=== PATIENT | male | born 1990 | race African-American/Black ===

== ENCOUNTER 2017-11-16 11:58 | Emergency (ER) | payer OTHER ==
[~2017-11-16] VITALS: Ht 190.5 cm; Wt 187.0 kg
[2017-11-16 12:13] VITALS: BP 174/103
[2017-11-16] MEDS ORDERED: BACITRACIN ZINC OINT UDPKT TOP ONE (12:30)
== END 2017-11-16 13:34 | disposition home or self-care (01) ==
LOC: ER 11:58
DX: S50.811A Abrasion of right forearm, initial encounter (principal); I10 Essential (primary) hypertension; F17.200 Nicotine dependence, unspecified, uncomplicated; W22.03XA Walked into furniture, initial encounter; Y93.01 Activity, walking, marching and hiking; Y92.89 Other specified places as the place of occurrence of the external cause; Y99.8 Other external cause status
CPT/HCPCS: 99282

== ENCOUNTER 2018-03-29 00:14 | Emergency (ER) | payer OTHER ==
[~2018-03-29] VITALS: Ht 190.5 cm; Wt 200.0 kg
[2018-03-29] MEDS ORDERED: BACITRACIN ZINC 15GM TUBE TOP ONE (02:15)
[2018-03-29 04:28] VITALS: BP 138/68
== END 2018-03-29 04:29 | disposition home or self-care (01) ==
LOC: ER 00:14
DX: S80.212A Abrasion, left knee, initial encounter (principal); S80.211A Abrasion, right knee, initial encounter; S80.02XA Contusion of left knee, initial encounter; S80.01XA Contusion of right knee, initial encounter; I10 Essential (primary) hypertension; J45.909 Unspecified asthma, uncomplicated; F17.200 Nicotine dependence, unspecified, uncomplicated; G47.30 Sleep apnea, unspecified; F12.10 Cannabis abuse, uncomplicated; E66.01 Morbid (severe) obesity due to excess calories; Z68.43 Body mass index [BMI] 50.0-59.9, adult; V03.10XA Pedestrian on foot injured in collision with car, pick-up truck or van in traffic accident, initial encounter; Y93.89 Activity, other specified; Y92.488 Other paved roadways as the place of occurrence of the external cause
CPT/HCPCS: 73501; 73560; 73620; 99284

== ENCOUNTER 2018-04-10 09:20 | Inpatient (IN) | payer OTHER ==
[~2018-04-10] VITALS: Ht 188 cm; Wt 192.8 kg
[2018-04-10] MEDS ORDERED: ALBUTEROL (0.083%) 2.5MG/3ML NEB HHN STA (10:46)
[2018-04-10] MEDS ORDERED: IPRATROPIUM BROMIDE (0.02%) 0.5MG/2.5ML NEB HHN STA (10:46)
[2018-04-10] MEDS ORDERED: METHYLPREDNISOLONE SOD SUCC 125 MG/2 ML VIAL IV STA (10:46)
[2018-04-10 11:24] LABS: BG BASE EXCESS 0.5 mmol/L (-2.0-2.0); BG DEOXYHEMOGLOBIN 4.7 % (0.0-5.0); BG FRACTION INSPIRED OXYGEN 36; BG HCO3 ACT 25.8 mmol/L (22.0-26.0); BG METHEMOGLOBIN 0.3 % (0.0-1.5); BG OXYGEN SATURATION 95.2 % (92.0-98.5); BG PCO2 44.1 mmHg (35.0-45.0); BG PH 7.385 (7.350-7.450); BG PO2 77.2 mmHg (75.0-100.0); BG SAMPLE SITE LEFT RADIAL; BG TOTAL HEMOGLOBIN 13.8 g/dL (12.0-18.0); BG VENT MODE NASAL CANNULA
[2018-04-10 11:57] LABS: HEMATOCRIT. 38.8 % (42.0-52.0); HEMOGLOBIN. 12.8 g/dL (14.0-18.0); MEAN CORPUSCULAR HEMOGLOBIN 28.1 pg (28.0-32.0); MEAN CORPUSCULAR VOLUME 84.7 fL (80.0-94.0); MEAN PLATELET VOLUME 10.1 fl (7.4-10.4); PLATELET 115 x1000/uL (130-400); RED BLOOD CELL COUNT 4.58 mill/uL (4.7-6.1)
[2018-04-10 12:00] LABS: CHLORIDE 95 mEq/L (98-107)
[2018-04-10 12:02] LABS: INR 1.3; PROTHROMBIN TIME 12.7 sec (9.1-11.1)
[2018-04-10] MEDS ORDERED: PIPERACILLIN/TAZ 3.375G PREMIX 50 ML IV ONE (12:15)
[2018-04-10] MEDS ORDERED: VANCOMYCIN 1 G PREMIX 200 ML IV ONE (12:15)
[2018-04-10] MEDS ORDERED: SODIUM CHLORIDE 0.9% 1,000 ML IV ONE ×3 (12:15→13:45)
[2018-04-10 12:58] LABS: PLATELET ESTIMATE SLIGHTLY DECREASED
[2018-04-10] MEDS ORDERED: ENOXAPARIN 150MG/ML SYR SUBCUT ONE (14:45)
[2018-04-10] MEDS ORDERED: ACETAMINOPHEN 650MG SUPP PR PRN (17:00)
[2018-04-10] MEDS ORDERED: MAGNESIUM/ALUMINUM HYDROXIDE/SIMETHICONE 30ML UDC PO PRN (17:00)
[2018-04-10] MEDS ORDERED: ACETAMINOPHEN 650MG/20.3ML UDC GT PRN (17:00)
[2018-04-10 18:27] LABS: HEPATITIS B SURFACE ANTIGEN NEGATIVE
[2018-04-10 18:55] LABS: HEPATITIS B CORE AB IGM NEGATIVE
[2018-04-10 18:57] LABS: HEPATITIS A AB IGM NEGATIVE (NEGATIVE)
[2018-04-10 19:56] LABS: CLARITY URINE TURBID (CLEAR); COLOR URINE DARK YELLOW (YELLOW); KETONES URINE NEGATIVE (NEGATIVE); LEUKOCYTE ESTERASE URINE TRACE (NEGATIVE); NITRITE URINE NEGATIVE (NEGATIVE); OCCULT BLOOD URINE 3+ (NEGATIVE); PH URINE 5.5 (4.5-8.0); PROTEIN URINE 2+ (NEGATIVE); SPECIFIC GRAVITY URINE 1.016 (1.005-1.030)
[2018-04-10 20:00] VITALS: BP 135/71
[2018-04-10 20:41] LABS: *AMPHETAMINES SCREEN URINE NEGATIVE (NEGATIVE); *BARBITURATES SCREEN URINE NEGATIVE (NEGATIVE); *BENZODIAZEPINES SCREEN URINE NEGATIVE (NEGATIVE); *COCAINE SCREEN URINE NEGATIVE (NEGATIVE)
[2018-04-10 20:42] LABS: CANNABINOID URINE SCREEN PRESUMTIVE POSITIVE (NEGATIVE); METHADONE URINE SCREEN NEGATIVE (NEGATIVE); OPIATES URINE SCREEN PRESUMTIVE POSITIVE (NEGATIVE); PHENCYCLIDINE URINE SCREEN NEGATIVE (NEGATIVE)
[2018-04-10] MEDS: IPRATROPIUM/ALBUTEROL 0.5-3(2.5)MG/3ML NEB HHN SCH (20:44)
[2018-04-10 22:11] VITALS: BP 116/55
[2018-04-10] MEDS: CLINDAMYCIN 600MG PREMIX 50 ML IV SCH (22:21)
[2018-04-10 22:48] VITALS: BP 133/70
[2018-04-10] MEDS: ONDANSETRON HCL 4MG/2ML INJ IV PRN (23:18)
[2018-04-11] VITALS (53 sets, daily range): BP systolic 90–171; BP diastolic 29–100
[2018-04-11 01:07] LABS: BG BASE EXCESS 1.5 mmol/L (-2.0-2.0); BG BILEVEL POS AIRWAY PRESSURE 15/5; BG CARBOXYHEMOGLOBIN 0.6 % (0.5-1.5); BG DEOXYHEMOGLOBIN 3.5 % (0.0-5.0); BG FRACTION INSPIRED OXYGEN 40; BG HCO3 ACT 29.6 mmol/L (22.0-26.0); BG METHEMOGLOBIN 0.4 % (0.0-1.5); BG OXYGEN SATURATION 96.5 % (92.0-98.5); BG OXYHEMOGLOBIN 95.5 % (94.0-97.0); BG PCO2 62.9 mmHg (35.0-45.0); BG PO2 89.3 mmHg (75.0-100.0); BG SAMPLE SITE RIGHT BRACHIAL; BG TIDAL VOLUME(mL) 18 mL; BG TOTAL HEMOGLOBIN 13.1 g/dL (12.0-18.0); BG VENT MODE MASK - BIPAP
[2018-04-11] MEDS: IPRATROPIUM/ALBUTEROL 0.5-3(2.5)MG/3ML NEB HHN SCH ×4 (01:19→21:21)
[2018-04-11 01:27] LABS: CREATINE KINASE MB FRACTION 7.1 ng/mL (0.5-3.6)
[2018-04-11] MEDS ORDERED: PROPOFOL 10MG/ML 100ML 100 ML IV PRN (01:45)
[2018-04-11] MEDS ORDERED: NOREPINEPHRINE 4 MG in DEXT 5% WATER 246 ML IV PRN (02:30)
[2018-04-11 06:55] LABS: HEMATOCRIT. 35.8 % (42.0-52.0); HEMOGLOBIN. 11.8 g/dL (14.0-18.0); PLATELET 102 x1000/uL (130-400); RED BLOOD CELL COUNT 4.21 mill/uL (4.7-6.1); RED CELL DISTRIBUTION WIDTH 15.4 % (11.6-14.6)
[2018-04-11] MEDS: CLINDAMYCIN 600MG PREMIX 50 ML IV SCH ×3 (07:10→23:20)
[2018-04-11] MEDS: SODIUM CHLORIDE 0.9% 1,000 ML IV SCH ×3 (07:11→20:38)
[2018-04-11] MEDS ORDERED: SUCCINYLCHOLINE CHLORIDE 200MG/10ML VIAL IV ONE (08:42)
[2018-04-11] MEDS ORDERED: ETOMIDATE 2MG/ML 10ML VIAL IV ONE ×2 (08:42→14:08)
[2018-04-11] MEDS: ENOXAPARIN 40MG/0.4ML SYR SUBCUT SCH (09:48)
[2018-04-11 10:18] LABS: BG BASE EXCESS -0.3 mmol/L (-2.0-2.0); BG CARBOXYHEMOGLOBIN 0.3 % (0.5-1.5); BG DEOXYHEMOGLOBIN 3.2 % (0.0-5.0); BG FRACTION INSPIRED OXYGEN 40; BG HCO3 ACT 27.7 mmol/L (22.0-26.0); BG METHEMOGLOBIN 0.2 % (0.0-1.5); BG OXYGEN SATURATION 96.8 % (92.0-98.5); BG OXYHEMOGLOBIN 96.3 % (94.0-97.0); BG PCO2 61.4 mmHg (35.0-45.0); BG PH 7.272 (7.350-7.450); BG SAMPLE SITE RIGHT RADIAL; BG TOTAL HEMOGLOBIN 12.3 g/dL (12.0-18.0); BG VENT MODE MASK - VENTI
[2018-04-11 10:25] LABS: CREATINE KINASE MB FRACTION 5.9 ng/mL (0.5-3.6)
[2018-04-11 10:26] LABS: T4 FREE 0.88 ng/dL (0.76-1.46)
[2018-04-11] MEDS ORDERED: NICOTINE 21MG PATCH TD NR (11:30)
[2018-04-11 11:37] LABS: PLATELET ESTIMATE SLIGHTLY DECREASED
[2018-04-11] MEDS ORDERED: SODIUM CHLORIDE 10% FOR INH 15ML VIAL NEB INH SCH (12:30)
[2018-04-11] MEDS: PIPERACILLIN/TAZ 3.375G PREMIX 50 ML IV SCH ×2 (13:25→20:38)
[2018-04-11] MEDS ORDERED: METRONIDAZOLE 500 MG PREMIX 100 ML IV SCH (14:00)
[2018-04-11] MEDS: PROPOFOL 10MG/ML 100ML 100 ML IV PRN ×4 (14:00→23:30)
[2018-04-11] MEDS ORDERED: NORMAL SALINE 0.9% 10 ML SYR ONE (14:08)
[2018-04-11] MEDS ORDERED: CLINDAMYCIN 600 MG in DEXTROSE 5% WATER 50 ML IV SCH (14:30)
[2018-04-11] MEDS: BUDESONIDE 0.5MG/2ML NEB HHN SCH ×2 (14:54→21:21)
[2018-04-11] MEDS ORDERED: VANCOMYCIN 2,000 MG in DEXT 5% WATER 500 ML IV NR (15:00)
[2018-04-11 15:28] LABS: BG BASE EXCESS -3.6 mmol/L (-2.0-2.0); BG CARBOXYHEMOGLOBIN 0.3 % (0.5-1.5); BG DEOXYHEMOGLOBIN 1.6 % (0.0-5.0); BG FRACTION INSPIRED OXYGEN 100; BG HCO3 ACT 24.5 mmol/L (22.0-26.0); BG METHEMOGLOBIN 0.3 % (0.0-1.5); BG OXYGEN SATURATION 98.4 % (92.0-98.5); BG OXYHEMOGLOBIN 97.8 % (94.0-97.0); BG PCO2 58.3 mmHg (35.0-45.0); BG PH 7.242 (7.350-7.450); BG PO2 140.3 mmHg (75.0-100.0); BG SAMPLE SITE RIGHT RADIAL; BG TIDAL VOLUME(mL) 600 mL; BG TOTAL HEMOGLOBIN 12.8 g/dL (12.0-18.0); BG VENT MODE VENT - A/C; BG VENT RATE 16 set
[2018-04-11 23:58] LABS: SODIUM URINE RANDOM 24 mEq/L
[2018-04-12] VITALS (64 sets, daily range): BP systolic 95–170; BP diastolic 38–113
[2018-04-12] MEDS: PROPOFOL 10MG/ML 100ML 100 ML IV PRN ×3 (01:09→06:48)
[2018-04-12] MEDS: IPRATROPIUM/ALBUTEROL 0.5-3(2.5)MG/3ML NEB HHN SCH ×2 (02:55→08:51)
[2018-04-12] MEDS: CLINDAMYCIN 600MG PREMIX 50 ML IV SCH (05:18)
[2018-04-12] MEDS: PIPERACILLIN/TAZ 3.375G PREMIX 50 ML IV SCH ×3 (05:18→21:41)
[2018-04-12 06:06] LABS: BASOPHILS % 0.1 % (0.0-2.0); EOSINOPHILS % 0.4 % (0.0-5.0); HEMATOCRIT. 31.9 % (42.0-52.0); HEMOGLOBIN. 10.8 g/dL (14.0-18.0); LYMPHOCYTES % 9.5 % (20.0-50.0); MEAN CORPUSCULAR HEMOGLOBIN 28.5 pg (28.0-32.0); MEAN CORPUSCULAR VOLUME 84.1 fL (80.0-94.0); MEAN PLATELET VOLUME 10.2 fl (7.4-10.4); MONOCYTES % 7.2 % (2.0-8.0); NEUTROPHILS % 82.8 % (40.0-76.0); PLATELET 97 x1000/uL (130-400); RED CELL DISTRIBUTION WIDTH 15.8 % (11.6-14.6)
[2018-04-12 06:37] LABS: PHOSPHORUS 5.1 mg/dL (2.5-4.9)
[2018-04-12 08:37] LABS: BG BASE EXCESS -1.2 mmol/L (-2.0-2.0); BG CARBOXYHEMOGLOBIN 0.2 % (0.5-1.5); BG DEOXYHEMOGLOBIN 1.3 % (0.0-5.0); BG FRACTION INSPIRED OXYGEN 60; BG HCO3 ACT 24.2 mmol/L (22.0-26.0); BG METHEMOGLOBIN 0.3 % (0.0-1.5); BG OXYGEN SATURATION 98.7 % (92.0-98.5); BG OXYHEMOGLOBIN 98.2 % (94.0-97.0); BG PCO2 43.2 mmHg (35.0-45.0); BG PH 7.366 (7.350-7.450); BG PO2 166.7 mmHg (75.0-100.0); BG SAMPLE SITE RIGHT RADIAL; BG TIDAL VOLUME(mL) 550 mL; BG TOTAL HEMOGLOBIN 10.6 g/dL (12.0-18.0); BG VENT MODE VENT - A/C; BG VENT RATE 18 set
[2018-04-12] MEDS: BUDESONIDE 0.5MG/2ML NEB HHN SCH ×2 (08:52→21:42)
[2018-04-12] MEDS ORDERED: MIDAZOLAM HCL 50 MG in DEXTROSE 5% WATER 40 ML IV PRN (09:00)
[2018-04-12] MEDS: ENOXAPARIN 40MG/0.4ML SYR SUBCUT SCH (09:00)
[2018-04-12] MEDS: PANTOPRAZOLE SODIUM 40 MG/VIAL IV SCH (09:00)
[2018-04-12] MEDS: NICOTINE 21MG PATCH TD SCH (09:00)
[2018-04-12] MEDS ORDERED: FENTANYL CITRATE/PF 500 MCG in SODIUM CHLORIDE 0.9% 40 ML IV PRN (09:00)
[2018-04-12] MEDS: MORPHINE SULFATE 4 MG/ML CPJ (NOT FOR IM USE) IV PRN ×2 (10:05→21:42)
[2018-04-12 10:57] LABS: BG BASE EXCESS -0.8 mmol/L (-2.0-2.0); BG CARBOXYHEMOGLOBIN 0.3 % (0.5-1.5); BG DEOXYHEMOGLOBIN 7.4 % (0.0-5.0); BG FRACTION INSPIRED OXYGEN 50; BG HCO3 ACT 26.4 mmol/L (22.0-26.0); BG METHEMOGLOBIN 0.2 % (0.0-1.5); BG OXYGEN SATURATION 92.6 % (92.0-98.5); BG OXYHEMOGLOBIN 92.1 % (94.0-97.0); BG PCO2 54.8 mmHg (35.0-45.0); BG PO2 73.1 mmHg (75.0-100.0); BG SAMPLE SITE RIGHT RADIAL; BG TOTAL HEMOGLOBIN 12.3 g/dL (12.0-18.0); BG VENT MODE MASK - VENTI
[2018-04-12] MEDS ORDERED: FUROSEMIDE 40MG/4ML VIAL IVP NR (11:15)
[2018-04-12] MEDS: ONDANSETRON HCL 4MG/2ML INJ IV PRN (11:43)
[2018-04-12] MEDS: ALBUTEROL (0.083%) 2.5MG/3ML NEB HHN SCH ×3 (13:08→21:42)
[2018-04-12 16:31] LABS: BG BASE EXCESS 0.4 mmol/L (-2.0-2.0); BG CARBOXYHEMOGLOBIN 0.5 % (0.5-1.5); BG DEOXYHEMOGLOBIN 6.7 % (0.0-5.0); BG FRACTION INSPIRED OXYGEN 28; BG HCO3 ACT 27.5 mmol/L (22.0-26.0); BG METHEMOGLOBIN 0.3 % (0.0-1.5); BG OXYGEN SATURATION 93.2 % (92.0-98.5); BG OXYHEMOGLOBIN 92.5 % (94.0-97.0); BG PCO2 55.4 mmHg (35.0-45.0); BG PH 7.314 (7.350-7.450); BG SAMPLE SITE RIGHT RADIAL; BG TOTAL HEMOGLOBIN 12.6 g/dL (12.0-18.0); BG VENT MODE NASAL CANNULA
[2018-04-12] MEDS: SODIUM CHLORIDE 0.9% 1,000 ML IV SCH (18:26)
[2018-04-12] MEDS ORDERED: LIDOCAINE HCL/PF 1% 2ML VIAL ONE (18:26)
[2018-04-12] MEDS: ACETAMINOPHEN 325MG TABLET PO PRN (23:17)
[2018-04-13] VITALS (33 sets, daily range): BP systolic 109–172; BP diastolic 39–118
[2018-04-13] MEDS: MORPHINE SULFATE 4 MG/ML CPJ (NOT FOR IM USE) IV PRN ×5 (00:03→23:21)
[2018-04-13] MEDS: ALBUTEROL (0.083%) 2.5MG/3ML NEB HHN SCH ×6 (00:27→21:02)
[2018-04-13] MEDS: PIPERACILLIN/TAZ 3.375G PREMIX 50 ML IV SCH ×3 (04:44→21:14)
[2018-04-13] MEDS: SODIUM CHLORIDE 0.9% 1,000 ML IV SCH ×2 (05:15→06:15)
[2018-04-13 05:46] LABS: BASOPHILS % 0.2 % (0.0-2.0); HEMATOCRIT. 33.2 % (42.0-52.0); HEMOGLOBIN. 10.8 g/dL (14.0-18.0); LYMPHOCYTES % 13.7 % (20.0-50.0); MEAN CORPUSCULAR HEMOGLOBIN 27.6 pg (28.0-32.0); MEAN CORPUSCULAR VOLUME 84.5 fL (80.0-94.0); MEAN PLATELET VOLUME 10.8 fl (7.4-10.4); MONOCYTES % 12.7 % (2.0-8.0); NEUTROPHILS % 73.4 % (40.0-76.0); PLATELET 108 x1000/uL (130-400); RED BLOOD CELL COUNT 3.93 mill/uL (4.7-6.1); RED CELL DISTRIBUTION WIDTH 15.3 % (11.6-14.6)
[2018-04-13 05:48] LABS: CHLORIDE 101 mEq/L (98-107)
[2018-04-13 05:54] LABS: PHOSPHORUS 4.5 mg/dL (2.5-4.9)
[2018-04-13 08:25] LABS: BG BASE EXCESS 2.9 mmol/L (-2.0-2.0); BG CARBOXYHEMOGLOBIN 0.2 % (0.5-1.5); BG DEOXYHEMOGLOBIN 2.4 % (0.0-5.0); BG FRACTION INSPIRED OXYGEN 32; BG METHEMOGLOBIN 0.3 % (0.0-1.5); BG OXYGEN SATURATION 97.6 % (92.0-98.5); BG OXYHEMOGLOBIN 97.1 % (94.0-97.0); BG PCO2 59.2 mmHg (35.0-45.0); BG PH 7.323 (7.350-7.450); BG SAMPLE SITE RIGHT RADIAL; BG TOTAL HEMOGLOBIN 11.1 g/dL (12.0-18.0); BG VENT MODE NASAL CANNULA
[2018-04-13] MEDS: BUDESONIDE 0.5MG/2ML NEB HHN SCH ×2 (08:51→21:02)
[2018-04-13] MEDS: PANTOPRAZOLE SODIUM 40 MG/VIAL IV SCH (09:11)
[2018-04-13] MEDS: NICOTINE 21MG PATCH TD SCH (09:12)
[2018-04-13] MEDS: FUROSEMIDE 40MG/4ML VIAL IVP SCH (09:12)
[2018-04-13] MEDS: ENOXAPARIN 40MG/0.4ML SYR SUBCUT SCH (09:13)
[2018-04-13 10:00] LABS: CREATINE KINASE 1384 IU/L (39-308)
[2018-04-13] MEDS ORDERED: VANCOMYCIN 2,000 MG in DEXT 5% WATER 500 ML IV NR (10:00)
[2018-04-13 12:12] LABS: CLARITY URINE TURBID (CLEAR); COLOR URINE YELLOW (YELLOW); KETONES URINE NEGATIVE (NEGATIVE); LEUKOCYTE ESTERASE URINE NEGATIVE (NEGATIVE); NITRITE URINE NEGATIVE (NEGATIVE); OCCULT BLOOD URINE 2+ (NEGATIVE); PROTEIN URINE 1+ (NEGATIVE); SPECIFIC GRAVITY URINE 1.012 (1.005-1.030)
[2018-04-13 13:06] LABS: HIV SCREEN 4G Non Reactive (Non Reactive)
[2018-04-13] MEDS: ACETAMINOPHEN 325MG TABLET PO PRN (19:58)
[2018-04-14] VITALS (18 sets, daily range): BP systolic 92–177; BP diastolic 46–113
[2018-04-14] MEDS: ALBUTEROL (0.083%) 2.5MG/3ML NEB HHN SCH ×6 (00:29→22:07)
[2018-04-14] MEDS: PIPERACILLIN/TAZ 3.375G PREMIX 50 ML IV SCH ×3 (05:39→21:03)
[2018-04-14] MEDS: SODIUM CHLORIDE 0.9% 1,000 ML IV SCH (05:39)
[2018-04-14 05:41] LABS: BASOPHILS % 0.2 % (0.0-2.0); EOSINOPHILS % 0.2 % (0.0-5.0); HEMATOCRIT. 34.2 % (42.0-52.0); HEMOGLOBIN. 11.3 g/dL (14.0-18.0); LYMPHOCYTES % 13.2 % (20.0-50.0); MEAN CORPUSCULAR HEMOGLOBIN 27.9 pg (28.0-32.0); MEAN CORPUSCULAR VOLUME 84.4 fL (80.0-94.0); MEAN PLATELET VOLUME 10.1 fl (7.4-10.4); MONOCYTES % 13.2 % (2.0-8.0); NEUTROPHILS % 73.2 % (40.0-76.0); PLATELET 131 x1000/uL (130-400); RED BLOOD CELL COUNT 4.05 mill/uL (4.7-6.1); RED CELL DISTRIBUTION WIDTH 15.4 % (11.6-14.6)
[2018-04-14 05:46] LABS: CHLORIDE 99 mEq/L (98-107)
[2018-04-14 05:53] LABS: PHOSPHORUS 4.9 mg/dL (2.5-4.9)
[2018-04-14] MEDS: BUDESONIDE 0.5MG/2ML NEB HHN SCH (08:38)
[2018-04-14] MEDS: FUROSEMIDE 40MG/4ML VIAL IVP SCH (08:49)
[2018-04-14] MEDS: NICOTINE 21MG PATCH TD SCH (08:49)
[2018-04-14] MEDS: PANTOPRAZOLE SODIUM 40 MG/VIAL IV SCH (08:49)
[2018-04-14] MEDS: ENOXAPARIN 40MG/0.4ML SYR SUBCUT SCH (09:00)
[2018-04-14] MEDS: ACETAMINOPHEN 325MG TABLET PO PRN ×2 (15:39→21:00)
[2018-04-14] MEDS: AMLODIPINE 5MG TABLET PO SCH (21:00)
[2018-04-15] VITALS: BP 162/84
[2018-04-15] MEDS: ALBUTEROL (0.083%) 2.5MG/3ML NEB HHN SCH ×5 (02:19→17:21)
[2018-04-15 04:00] VITALS: BP 163/89
[2018-04-15] MEDS: SODIUM CHLORIDE 0.9% 1,000 ML IV SCH (06:07)
[2018-04-15] MEDS: PIPERACILLIN/TAZ 3.375G PREMIX 50 ML IV SCH ×3 (06:07→20:50)
[2018-04-15 08:00] VITALS: BP 144/74
[2018-04-15] MEDS: NICOTINE 21MG PATCH TD SCH (08:49)
[2018-04-15] MEDS: FUROSEMIDE 40MG/4ML VIAL IVP SCH (08:49)
[2018-04-15] MEDS: AMLODIPINE 5MG TABLET PO SCH ×2 (08:50→20:50)
[2018-04-15] MEDS: ENOXAPARIN 40MG/0.4ML SYR SUBCUT SCH (08:50)
[2018-04-15] MEDS: ACETAMINOPHEN 325MG TABLET PO PRN (08:51)
[2018-04-15 09:06] LABS: GLOMERULAR BASEMENT MEMB AB 5 units (0-20)
[2018-04-15 10:32] LABS: BASOPHILS % 0.2 % (0.0-2.0); HEMATOCRIT. 36.4 % (42.0-52.0); HEMOGLOBIN. 11.9 g/dL (14.0-18.0); MEAN CORPUSCULAR HEMOGLOBIN 28.1 pg (28.0-32.0); MEAN CORPUSCULAR VOLUME 85.7 fL (80.0-94.0); MEAN PLATELET VOLUME 9.8 fl (7.4-10.4); NEUTROPHILS % 72.8 % (40.0-76.0); PLATELET 183 x1000/uL (130-400); RED BLOOD CELL COUNT 4.25 mill/uL (4.7-6.1); RED CELL DISTRIBUTION WIDTH 15.1 % (11.6-14.6)
[2018-04-15 11:13] LABS: CHLORIDE 98 mEq/L (98-107)
[2018-04-15 11:22] LABS: PHOSPHORUS 2.5 mg/dL (2.5-4.9)
[2018-04-15 12:00] VITALS: BP 143/86
[2018-04-15 13:10] LABS: ATYPICAL P-ANCA <1:20 titer (Neg:<1:20); CYTOPLASMIC C-ANCA <1:20 titer (Neg:<1:20); PERINUCLEAR P-ANCA <1:20 titer (Neg:<1:20)
[2018-04-15 15:06] LABS: ANTI-MYELOPEROXIDASE AB < 9.0 U/mL (0.0-9.0); ANTI-PROTEINASE 3 ABS < 3.5 U/mL (0.0-3.5)
[2018-04-15 16:00] VITALS: BP 165/88
[2018-04-15] MEDS: VANCOMYCIN 1,750 MG in DEXT 5% WATER 500 ML IV SCH (16:56)
[2018-04-15] MEDS ORDERED: IPRATROPIUM/ALBUTEROL 0.5-3(2.5)MG/3ML NEB HHN PRN (18:30)
[2018-04-15 20:00] VITALS: BP 169/101
[2018-04-15] MEDS: NEOMY SULF/BACITRAC ZN/POLY OINT 28GM TOP SCH (20:50)
[2018-04-15] MEDS: CLONIDINE 0.1MG TABLET PO PRN (20:50)
[2018-04-15] MEDS: IPRATROPIUM BROMIDE (0.02%) 0.5MG/2.5ML NEB HHN SCH (21:09)
[2018-04-16] VITALS (9 sets, daily range): BP systolic 124–206; BP diastolic 49–111
[2018-04-16] MEDS: IPRATROPIUM BROMIDE (0.02%) 0.5MG/2.5ML NEB HHN SCH ×3 (03:11→15:21)
[2018-04-16] MEDS: PIPERACILLIN/TAZ 3.375G PREMIX 50 ML IV SCH ×2 (06:46→13:56)
[2018-04-16] MEDS: SODIUM CHLORIDE 0.9% 1,000 ML IV SCH (06:47)
[2018-04-16 07:19] LABS: COMPLEMENT C3 138 mg/dL (82-167)
[2018-04-16 08:00] LABS: BASOPHILS % 0.3 % (0.0-2.0); EOSINOPHILS % 2.5 % (0.0-5.0); HEMATOCRIT. 37.4 % (42.0-52.0); HEMOGLOBIN. 12.2 g/dL (14.0-18.0); LYMPHOCYTES % 18.4 % (20.0-50.0); MEAN CORPUSCULAR HEMOGLOBIN 28.1 pg (28.0-32.0); MEAN CORPUSCULAR VOLUME 86.1 fL (80.0-94.0); MEAN PLATELET VOLUME 9.5 fl (7.4-10.4); MONOCYTES % 14.4 % (2.0-8.0); NEUTROPHILS % 64.4 % (40.0-76.0); PLATELET 242 x1000/uL (130-400); RED BLOOD CELL COUNT 4.34 mill/uL (4.7-6.1); RED CELL DISTRIBUTION WIDTH 14.8 % (11.6-14.6)
[2018-04-16] MEDS ORDERED: ENOXAPARIN 40MG/0.4ML SYR SUBCUT SCH (09:00)
[2018-04-16] MEDS: CLONIDINE 0.1MG TABLET PO PRN ×2 (09:18→16:50)
[2018-04-16] MEDS: AMLODIPINE 5MG TABLET PO SCH ×2 (09:18→20:36)
[2018-04-16] MEDS: NEOMY SULF/BACITRAC ZN/POLY OINT 28GM TOP SCH (09:19)
[2018-04-16] MEDS: NICOTINE 21MG PATCH TD SCH (09:19)
[2018-04-16 09:30] LABS: CHLORIDE 98 mEq/L (98-107)
[2018-04-16 09:50] LABS: CREATINE KINASE 772 IU/L (39-308)
[2018-04-16] MEDS: VANCOMYCIN 1,750 MG in DEXT 5% WATER 500 ML IV SCH (16:50)
[2018-04-16] MEDS: ONDANSETRON HCL 4MG/2ML INJ IV PRN (17:00)
[2018-04-16] MEDS ORDERED: HYDRALAZINE 20MG/ML VIAL IV NR (17:15)
== END 2018-04-16 21:43 | disposition home health service (06) | DRG 720 ==
LOC: ER 10:57 → 3WST 14:34 → ENRESERV 16:33 → MICUSO 04-11 06:54 → 7WST 04-14 16:35
PROVIDERS: ADMIT Internal Medicine; ATTEND Internal Medicine
PROC: 5A09357 Assistance with Respiratory Ventilation, Less than 24 Consecutive Hours, Continuous Positive Airway Pressure (ICD-10-PCS; 2018-04-10)
PROC: 0BH17EZ Insertion of Endotracheal Airway into Trachea, Via Natural or Artificial Opening (ICD-10-PCS; principal; 2018-04-11)
PROC: 5A1935Z Respiratory Ventilation, Less than 24 Consecutive Hours (ICD-10-PCS; 2018-04-11)
PROC: 5A09357 Assistance with Respiratory Ventilation, Less than 24 Consecutive Hours, Continuous Positive Airway Pressure (ICD-10-PCS; 2018-04-11)
PROC: 5A09357 Assistance with Respiratory Ventilation, Less than 24 Consecutive Hours, Continuous Positive Airway Pressure (ICD-10-PCS; 2018-04-12)
PROC: 5A09357 Assistance with Respiratory Ventilation, Less than 24 Consecutive Hours, Continuous Positive Airway Pressure (ICD-10-PCS; 2018-04-13)
PROC: 5A09357 Assistance with Respiratory Ventilation, Less than 24 Consecutive Hours, Continuous Positive Airway Pressure (ICD-10-PCS; 2018-04-14)
PROC: 5A09357 Assistance with Respiratory Ventilation, Less than 24 Consecutive Hours, Continuous Positive Airway Pressure (ICD-10-PCS; 2018-04-15)
PROC: 5A09357 Assistance with Respiratory Ventilation, Less than 24 Consecutive Hours, Continuous Positive Airway Pressure (ICD-10-PCS; 2018-04-16)
DX: A41.9 Sepsis, unspecified organism (principal); N17.0 Acute kidney failure with tubular necrosis; G93.40 Encephalopathy, unspecified; J18.9 Pneumonia, unspecified organism; J96.02 Acute respiratory failure with hypercapnia; J96.01 Acute respiratory failure with hypoxia; D69.6 Thrombocytopenia, unspecified; E87.8 Other disorders of electrolyte and fluid balance, not elsewhere classified; I11.0 Hypertensive heart disease with heart failure; E83.39 Other disorders of phosphorus metabolism; E66.2 Morbid (severe) obesity with alveolar hypoventilation; M62.82 Rhabdomyolysis; E87.1 Hypo-osmolality and hyponatremia; F12.90 Cannabis use, unspecified, uncomplicated; L53.9 Erythematous condition, unspecified; L03.116 Cellulitis of left lower limb; R65.20 Severe sepsis without septic shock; D64.9 Anemia, unspecified; L97.529 Non-pressure chronic ulcer of other part of left foot with unspecified severity; L97.829 Non-pressure chronic ulcer of other part of left lower leg with unspecified severity; S90.412A Abrasion, left great toe, initial encounter; S80.212A Abrasion, left knee, initial encounter; F17.210 Nicotine dependence, cigarettes, uncomplicated; R79.89 Other specified abnormal findings of blood chemistry; N39.0 Urinary tract infection, site not specified; I50.32 Chronic diastolic (congestive) heart failure; J45.20 Mild intermittent asthma, uncomplicated; Z53.20 Procedure and treatment not carried out because of patient's decision for unspecified reasons; Z82.49 Family history of ischemic heart disease and other diseases of the circulatory system; Z91.19 Patient's noncompliance with other medical treatment and regimen; Z68.43 Body mass index [BMI] 50.0-59.9, adult; Z78.1 Physical restraint status; Z71.6 Tobacco abuse counseling; Z99.81 Dependence on supplemental oxygen; V03.99XA Pedestrian with other conveyance injured in collision with car, pick-up truck or van, unspecified whether traffic or nontraffic accident, initial encounter; Y93.89 Activity, other specified; Y92.89 Other specified places as the place of occurrence of the external cause; Y99.8 Other external cause status
CPT/HCPCS: 31500; 36415; 36600; 71045; 73590; 73610; 73620; 76705; 80048; 80053; 80061; 80076; 80202; 80305; 81003; 82375; 82533; 82550; 82553; 82570; 82805; 82962; 83036; 83520; 83690; 83735; 83880; 83935; 84100; 84134; 84145; 84156; 84300; 84439; 84443; 84478; 84481; 84484; 85025; 85379; 85610; 85651; 86140; 86160; 86256; 86705; 86709; 86803; 87040; 87070; 87086; 87340; 87389; 93005; 93306; 93970; 94002; 94003; 94640; 94660; 94664; 96365; 96375; 97162; 97166; 97530; 99291; A4216; C9113; J0330; J0360; J1650; J1940; J2250; J2270; J2405; J2543; J2704; J2930; J3010; J3370; J3490; J7030; J7040; J7060; J7131; J7611; J7620; J7626; A4315

== ENCOUNTER 2018-09-29 11:08 | Emergency (ER) | payer MEDICAID, OTHER ==
[~2018-09-29] VITALS: Ht 190.5 cm; Wt 180.0 kg
[2018-09-29 18:18] VITALS: BP 144/93
== END 2018-09-29 18:25 | disposition home or self-care (01) ==
LOC: ER 11:08
DX: S02.82XA Fracture of other specified skull and facial bones, left side, initial encounter for closed fracture (principal); Y08.89XA Assault by other specified means, initial encounter; Y93.89 Activity, other specified; Y92.89 Other specified places as the place of occurrence of the external cause
CPT/HCPCS: 70486; 99284

== ENCOUNTER 2019-02-14 07:26 | Emergency (ER) | payer MEDICAID ==
[~2019-02-14] VITALS: Ht 170.2 cm; Wt 160.0 kg
[2019-02-14 08:47] VITALS: BP 148/82
== END 2019-02-14 08:47 | disposition home or self-care (01) ==
LOC: ER 07:27
DX: S09.8XXA Other specified injuries of head, initial encounter (principal); S16.1XXA Strain of muscle, fascia and tendon at neck level, initial encounter; M25.572 Pain in left ankle and joints of left foot; M25.571 Pain in right ankle and joints of right foot; I10 Essential (primary) hypertension; V49.49XA Driver injured in collision with other motor vehicles in traffic accident, initial encounter; Y93.89 Activity, other specified; Y92.410 Unspecified street and highway as the place of occurrence of the external cause
CPT/HCPCS: 99282

== ENCOUNTER 2020-11-22 23:27 | Emergency (ER) | payer MEDICAID ==
[~2020-11-22] VITALS: Ht 190.5 cm; Wt 170.0 kg
[2020-11-23] MEDS ORDERED: IBUPROFEN 600MG TABLET PO ONE (00:30)
[2020-11-23] MEDS ORDERED: IBUP-2029 MT (02:51)
[2020-11-23 03:24] VITALS: BP 140/75
== END 2020-11-23 03:39 | disposition home or self-care (01) ==
LOC: ER 23:27
DX: M25.571 Pain in right ankle and joints of right foot (principal); Z91.81 History of falling; I10 Essential (primary) hypertension; J45.909 Unspecified asthma, uncomplicated; F12.90 Cannabis use, unspecified, uncomplicated
CPT/HCPCS: 29515; 73590; 73610; 73630; 99284; Z7610

== ENCOUNTER 2021-04-13 08:15 | Inpatient (IN) | payer MEDICAID, OTHER ==
[~2021-04-13] VITALS: Ht 190.5 cm; Wt 165.1 kg
[~2021-04-13 08:15] MED LIST: IBUP-2029 MT
[2021-04-13] MEDS ORDERED: DEXAMETHASONE 4MG/ML 1ML VIAL IV ONE (08:45)
[2021-04-13 08:57] LABS: BASOPHILS % 0.2 % (0.0-2.0); EOSINOPHILS % 0.1 % (0.0-5.0); HEMATOCRIT. 47.3 % (42.0-52.0); HEMOGLOBIN. 15.7 g/dL (14.0-18.0); LYMPHOCYTES % 10.8 % (20.0-50.0); MEAN CORPUSCULAR VOLUME 84.6 fL (80.0-94.0); MEAN PLATELET VOLUME 9.1 fl (7.4-10.4); MONOCYTES % 4.6 % (2.0-8.0); NEUTROPHILS % 84.3 % (40.0-76.0); PLATELET 224 x1000/uL (130-400); RED BLOOD CELL COUNT 5.59 mill/uL (4.7-6.1)
[2021-04-13 09:02] LABS: CHLORIDE 101 mEq/L (98-107)
[2021-04-13] MEDS ORDERED: CEFTRIAXONE 1 G PREMIX 50 ML IV NR (09:15)
[2021-04-13] MEDS ORDERED: AZITHROMYCIN 500 MG in DEXT 5% WATER 250 ML IV SCH (09:15)
[2021-04-13 12:00] VITALS: BP 124/61
[2021-04-13] MEDS ORDERED: ONDANSETRON HCL 4MG/2ML INJ IV PRN (12:00)
[2021-04-13] MEDS ORDERED: ACETAMINOPHEN 325MG TABLET PO PRN (12:00)
[2021-04-13] MEDS ORDERED: CLONIDINE 0.1MG TABLET PO PRN (12:00)
[2021-04-13] MEDS ORDERED: DOCUSATE SODIUM 100MG CAPSULE PO PRN (12:00)
[2021-04-13] MEDS ORDERED: LORAZEPAM 0.5MG TABLET PO PRN (12:00)
[2021-04-13] MEDS: SODIUM CHLORIDE 0.9% 1,000 ML IV SCH ×2 (12:18→20:49)
[2021-04-13 12:19] LABS: CLARITY URINE CLOUDY (CLEAR); COLOR URINE DARK YELLOW (YELLOW); KETONES URINE TRACE (NEGATIVE); LEUKOCYTE ESTERASE URINE NEGATIVE (NEGATIVE); NITRITE URINE NEGATIVE (NEGATIVE); OCCULT BLOOD URINE 3+ (NEGATIVE); PROTEIN URINE 2+ (NEGATIVE); SPECIFIC GRAVITY URINE 1.019 (1.005-1.030)
[2021-04-13 13:00] VITALS: BP 124/61
[2021-04-13 13:01] VITALS: BP 124/61
[2021-04-13 13:05] LABS: METHADONE URINE SCREEN NEGATIVE (NEGATIVE)
[2021-04-13 13:08] LABS: *AMPHETAMINES SCREEN URINE NEGATIVE (NEGATIVE)
[2021-04-13 13:11] LABS: *BARBITURATES SCREEN URINE NEGATIVE (NEGATIVE)
[2021-04-13 13:13] LABS: *BENZODIAZEPINES SCREEN URINE NEGATIVE (NEGATIVE)
[2021-04-13 13:15] LABS: *COCAINE SCREEN URINE NEGATIVE (NEGATIVE); CANNABINOID URINE SCREEN PRESUMTIVE POSITIVE (NEGATIVE); OPIATES URINE SCREEN NEGATIVE (NEGATIVE)
[2021-04-13 13:19] LABS: PHENCYCLIDINE URINE SCREEN NEGATIVE (NEGATIVE)
[2021-04-13] MEDS: ENOXAPARIN 40MG/0.4ML SYR SUBCUT SCH ×2 (13:40→20:47)
[2021-04-13] MEDS ORDERED: AMLO10TA80 PO (15:30)
[2021-04-13] MEDS ORDERED: METO-539 PO (15:30)
[2021-04-13] MEDS ORDERED: LOSA100T32 PO (15:30)
[2021-04-13 16:00] VITALS: BP 122/65
[2021-04-13] MEDS ORDERED: NALOXONE HCL 0.4MG/ML VIAL IV PRN (17:30)
[2021-04-13 20:00] VITALS: BP 146/86
[2021-04-13] MEDS: GUAIFENESIN-DM 200MG-20MG/10ML UDC PO PRN (20:47)
[2021-04-13] MEDS: METOPROLOL TARTRATE 25MG TABLET PO SCH (20:48)
[2021-04-14] VITALS: BP 125/76
[2021-04-14 04:00] VITALS: BP 144/77
[2021-04-14] MEDS: SODIUM CHLORIDE 0.9% 1,000 ML IV SCH ×3 (04:46→21:21)
[2021-04-14 06:24] LABS: BASOPHILS % 0.2 % (0.0-2.0); HEMATOCRIT. 44.9 % (42.0-52.0); HEMOGLOBIN. 15.2 g/dL (14.0-18.0); LYMPHOCYTES % 10.2 % (20.0-50.0); MEAN CORPUSCULAR HEMOGLOBIN 28.6 pg (28.0-32.0); MEAN CORPUSCULAR VOLUME 84.3 fL (80.0-94.0); MEAN PLATELET VOLUME 9.6 fl (7.4-10.4); MONOCYTES % 4.9 % (2.0-8.0); NEUTROPHILS % 84.7 % (40.0-76.0); PLATELET 230 x1000/uL (130-400); RED BLOOD CELL COUNT 5.32 mill/uL (4.7-6.1); RED CELL DISTRIBUTION WIDTH 13.8 % (11.6-14.6)
[2021-04-14 06:49] LABS: CHLORIDE 100 mEq/L (98-107)
[2021-04-14 06:56] LABS: LDL CHOLESTEROL 125 mg/dL (5-100)
[2021-04-14 06:58] LABS: HDL CHOLESTEROL 34 mg/dL (40-59)
[2021-04-14 08:00] VITALS: BP 141/94
[2021-04-14] MEDS: AMLODIPINE 10MG TABLET PO SCH (08:05)
[2021-04-14] MEDS: DEXAMETHASONE 10 MG/ML VIAL IV SCH (08:05)
[2021-04-14] MEDS: ENOXAPARIN 40MG/0.4ML SYR SUBCUT SCH ×2 (08:06→21:21)
[2021-04-14] MEDS: AZITHROMYCIN 500 MG TABLET PO SCH (08:06)
[2021-04-14] MEDS: METOPROLOL TARTRATE 25MG TABLET PO SCH ×2 (08:06→21:21)
[2021-04-14] MEDS: CEFTRIAXONE 1,000 MG in DEXTROSE 5% WATER 50 ML IV SCH (08:06)
[2021-04-14] MEDS ORDERED: CEFTRIAXONE 1 G PREMIX 50 ML IV SCH (09:00)
[2021-04-14 12:00] VITALS: BP 132/86
[2021-04-14] MEDS: GUAIFENESIN-DM 200MG-20MG/10ML UDC PO PRN (13:31)
[2021-04-14] MEDS: BENZONATATE 100MG CAPSULE PO SCH ×2 (13:34→21:20)
[2021-04-14 16:00] VITALS: BP 133/81
[2021-04-14 20:00] VITALS: BP 143/81
[2021-04-15] VITALS: BP 116/84
[2021-04-15] MEDS: GUAIFENESIN-DM 200MG-20MG/10ML UDC PO PRN (02:39)
[2021-04-15 04:00] VITALS: BP 136/70
[2021-04-15] MEDS: BENZONATATE 100MG CAPSULE PO SCH ×3 (05:26→20:46)
[2021-04-15] MEDS: SODIUM CHLORIDE 0.9% 1,000 ML IV SCH ×3 (05:26→21:23)
[2021-04-15 08:00] VITALS: BP 126/69
[2021-04-15 08:11] LABS: BASOPHILS % 0.1 % (0.0-2.0); HEMATOCRIT. 44.8 % (42.0-52.0); LYMPHOCYTES % 13.2 % (20.0-50.0); MEAN CORPUSCULAR HEMOGLOBIN 28.2 pg (28.0-32.0); MEAN CORPUSCULAR VOLUME 84.4 fL (80.0-94.0); MEAN PLATELET VOLUME 9.7 fl (7.4-10.4); MONOCYTES % 3.6 % (2.0-8.0); NEUTROPHILS % 83.1 % (40.0-76.0); PLATELET 227 x1000/uL (130-400); RED BLOOD CELL COUNT 5.31 mill/uL (4.7-6.1); RED CELL DISTRIBUTION WIDTH 14.2 % (11.6-14.6)
[2021-04-15 08:12] LABS: CHLORIDE 102 mEq/L (98-107)
[2021-04-15] MEDS: CEFTRIAXONE 1,000 MG in DEXTROSE 5% WATER 50 ML IV SCH (09:10)
[2021-04-15] MEDS: ENOXAPARIN 40MG/0.4ML SYR SUBCUT SCH ×2 (09:10→20:46)
[2021-04-15] MEDS: METOPROLOL TARTRATE 25MG TABLET PO SCH ×2 (09:11→20:46)
[2021-04-15] MEDS: AMLODIPINE 10MG TABLET PO SCH (09:11)
[2021-04-15] MEDS: AZITHROMYCIN 500 MG TABLET PO SCH (09:11)
[2021-04-15] MEDS: DEXAMETHASONE 10 MG/ML VIAL IV SCH (09:11)
[2021-04-15 12:00] VITALS: BP 129/78
[2021-04-15] MEDS: ACETAMINOPHEN 325MG TABLET PO PRN (15:42)
[2021-04-15 16:00] VITALS: BP 153/88
[2021-04-15 20:00] VITALS: BP 173/93
[2021-04-16] VITALS: BP 117/67
[2021-04-16 04:00] VITALS: BP 112/71
[2021-04-16] MEDS: BENZONATATE 100MG CAPSULE PO SCH ×3 (05:04→20:55)
[2021-04-16 06:37] LABS: BASOPHILS % 0.1 % (0.0-2.0); EOSINOPHILS % 0.1 % (0.0-5.0); HEMATOCRIT. 44.6 % (42.0-52.0); HEMOGLOBIN. 14.6 g/dL (14.0-18.0); LYMPHOCYTES % 12.8 % (20.0-50.0); MEAN CORPUSCULAR HEMOGLOBIN 28.1 pg (28.0-32.0); MEAN CORPUSCULAR VOLUME 85.6 fL (80.0-94.0); MONOCYTES % 5.1 % (2.0-8.0); NEUTROPHILS % 81.9 % (40.0-76.0); PLATELET 210 x1000/uL (130-400); RED BLOOD CELL COUNT 5.21 mill/uL (4.7-6.1); RED CELL DISTRIBUTION WIDTH 13.7 % (11.6-14.6)
[2021-04-16] MEDS: SODIUM CHLORIDE 0.9% 1,000 ML IV SCH ×3 (06:40→20:56)
[2021-04-16 06:42] LABS: CHLORIDE 101 mEq/L (98-107)
[2021-04-16 08:00] VITALS: BP 123/71
[2021-04-16] MEDS: CEFTRIAXONE 1,000 MG in DEXTROSE 5% WATER 50 ML IV SCH (08:57)
[2021-04-16] MEDS: METOPROLOL TARTRATE 25MG TABLET PO SCH ×2 (08:58→20:55)
[2021-04-16] MEDS: AMLODIPINE 10MG TABLET PO SCH (08:58)
[2021-04-16] MEDS: GUAIFENESIN-DM 200MG-20MG/10ML UDC PO PRN (08:59)
[2021-04-16] MEDS: DEXAMETHASONE 10 MG/ML VIAL IV SCH (08:59)
[2021-04-16] MEDS: HYDROCODONE/ACETAMINOPHEN 5/325MG TABLET PO PRN ×3 (08:59→20:54)
[2021-04-16] MEDS: ACETAMINOPHEN 325MG TABLET PO PRN (08:59)
[2021-04-16] MEDS: AZITHROMYCIN 500 MG TABLET PO SCH (09:00)
[2021-04-16] MEDS: ENOXAPARIN 40MG/0.4ML SYR SUBCUT SCH ×2 (09:01→20:55)
[2021-04-16] MEDS ORDERED: LIDOCAINE HCL 1% 20ML VIAL (Pyxis) INJ ONE (11:00)
[2021-04-16 12:00] VITALS: BP 125/72
[2021-04-16 16:00] VITALS: BP 129/75
[2021-04-16 20:00] VITALS: BP_SYST 129; BP_SYST 138; BP_DIAS 84; BP_DIAS 86
[2021-04-17] VITALS: BP 150/70
[2021-04-17 04:00] VITALS: BP 132/81
[2021-04-17] MEDS: BENZONATATE 100MG CAPSULE PO SCH ×3 (05:22→21:00)
[2021-04-17 07:16] LABS: BASOPHILS % 0.1 % (0.0-2.0); HEMATOCRIT. 42.5 % (42.0-52.0); HEMOGLOBIN. 14.3 g/dL (14.0-18.0); LYMPHOCYTES % 12.4 % (20.0-50.0); MEAN CORPUSCULAR HEMOGLOBIN 28.2 pg (28.0-32.0); MEAN CORPUSCULAR VOLUME 83.7 fL (80.0-94.0); MEAN PLATELET VOLUME 8.8 fl (7.4-10.4); MONOCYTES % 3.7 % (2.0-8.0); NEUTROPHILS % 83.8 % (40.0-76.0); PLATELET 184 x1000/uL (130-400); RED BLOOD CELL COUNT 5.08 mill/uL (4.7-6.1); RED CELL DISTRIBUTION WIDTH 13.9 % (11.6-14.6)
[2021-04-17 08:01] LABS: CHLORIDE 100 mEq/L (98-107)
[2021-04-17] MEDS: ENOXAPARIN 40MG/0.4ML SYR SUBCUT SCH (09:08)
[2021-04-17] MEDS: SODIUM CHLORIDE 0.9% 1,000 ML IV SCH (09:08)
[2021-04-17] MEDS: DEXAMETHASONE 10 MG/ML VIAL IV SCH (09:08)
[2021-04-17] MEDS: AMLODIPINE 10MG TABLET PO SCH (09:09)
[2021-04-17] MEDS: METOPROLOL TARTRATE 25MG TABLET PO SCH ×2 (09:09→21:00)
[2021-04-17] MEDS: AZITHROMYCIN 500 MG TABLET PO SCH (09:09)
[2021-04-17] MEDS: CEFTRIAXONE 1,000 MG in DEXTROSE 5% WATER 50 ML IV SCH (09:11)
[2021-04-17 16:00] VITALS: BP 119/74
[2021-04-17] MEDS: ENOXAPARIN 150MG/ML SYR SUBCUT SCH (17:19)
[2021-04-17 20:00] VITALS: BP 108/70
[2021-04-18] VITALS: BP 124/70
[2021-04-18 04:00] VITALS: BP 118/76
[2021-04-18] MEDS: BENZONATATE 100MG CAPSULE PO SCH ×3 (06:25→20:42)
[2021-04-18] MEDS: HYDROCODONE/ACETAMINOPHEN 5/325MG TABLET PO PRN (06:26)
[2021-04-18] MEDS: ENOXAPARIN 150MG/ML SYR SUBCUT SCH ×2 (06:27→17:03)
[2021-04-18 07:38] LABS: BASOPHILS % 0.4 % (0.0-2.0); EOSINOPHILS % 0.1 % (0.0-5.0); HEMATOCRIT. 44.4 % (42.0-52.0); HEMOGLOBIN. 14.5 g/dL (14.0-18.0); LYMPHOCYTES % 11.2 % (20.0-50.0); MEAN CORPUSCULAR HEMOGLOBIN 28.1 pg (28.0-32.0); MEAN PLATELET VOLUME 9.2 fl (7.4-10.4); MONOCYTES % 3.3 % (2.0-8.0); PLATELET 173 x1000/uL (130-400); RED BLOOD CELL COUNT 5.16 mill/uL (4.7-6.1); RED CELL DISTRIBUTION WIDTH 13.7 % (11.6-14.6)
[2021-04-18 08:00] VITALS: BP 124/69
[2021-04-18] MEDS: GUAIFENESIN-DM 200MG-20MG/10ML UDC PO PRN ×2 (09:03→17:03)
[2021-04-18] MEDS: SODIUM CHLORIDE 0.9% 1,000 ML IV SCH ×2 (09:03→17:00)
[2021-04-18] MEDS: DEXAMETHASONE 10 MG/ML VIAL IV SCH (09:03)
[2021-04-18] MEDS: AMLODIPINE 10MG TABLET PO SCH (09:03)
[2021-04-18] MEDS: METOPROLOL TARTRATE 25MG TABLET PO SCH (09:03)
[2021-04-18] MEDS: CEFTRIAXONE 1,000 MG in DEXTROSE 5% WATER 50 ML IV SCH (09:04)
[2021-04-18] MEDS: ALBUTEROL 6.7GM HFA INHALER ORI PRN ×2 (09:05→17:03)
[2021-04-18 09:47] LABS: CHLORIDE 100 mEq/L (98-107)
[2021-04-18 10:44] LABS: INR 1.1; PROTHROMBIN TIME 11.9 sec (9.6-11.0)
[2021-04-18 12:00] VITALS: BP 133/68
[2021-04-18] MEDS: ACETAMINOPHEN 325MG TABLET PO PRN ×2 (13:39→20:43)
[2021-04-18 16:00] VITALS: BP 128/88
[2021-04-18] MEDS ORDERED: IOHEXOL-350 100 ML BOTTLE ONE (16:24)
[2021-04-18] MEDS: ASPIRIN 81MG EC TABLET PO SCH (17:03)
[2021-04-18 20:36] VITALS: BP 172/87
[2021-04-18] MEDS: METOPROLOL TARTRATE 50MG TABLET PO SCH (20:43)
[2021-04-19] MEDS: SODIUM CHLORIDE 0.9% 1,000 ML IV SCH ×4 (00:44→21:54)
[2021-04-19 00:46] VITALS: BP 152/92
[2021-04-19 04:00] VITALS: BP 156/90
[2021-04-19] MEDS: ENOXAPARIN 150MG/ML SYR SUBCUT SCH ×2 (05:27→18:00)
[2021-04-19] MEDS: BENZONATATE 100MG CAPSULE PO SCH ×2 (05:27→14:53)
[2021-04-19 08:00] VITALS: BP 130/70
[2021-04-19] MEDS: AMLODIPINE 10MG TABLET PO SCH (08:42)
[2021-04-19] MEDS: METOPROLOL TARTRATE 50MG TABLET PO SCH ×3 (08:43→21:51)
[2021-04-19] MEDS: ASPIRIN 81MG EC TABLET PO SCH (08:43)
[2021-04-19] MEDS: DEXAMETHASONE 10 MG/ML VIAL IV SCH (09:43)
[2021-04-19 12:00] VITALS: BP 137/84
[2021-04-19 12:22] LABS: HEMATOCRIT. 40.3 % (42.0-52.0); MEAN CORPUSCULAR HEMOGLOBIN 27.4 pg (28.0-32.0); MEAN CORPUSCULAR VOLUME 85.1 fL (80.0-94.0); MEAN PLATELET VOLUME 9.5 fl (7.4-10.4); PLATELET 193 x1000/uL (130-400); RED BLOOD CELL COUNT 4.73 mill/uL (4.7-6.1); RED CELL DISTRIBUTION WIDTH 13.7 % (11.6-14.6)
[2021-04-19 12:28] LABS: CHLORIDE 98 mEq/L (98-107)
[2021-04-19 13:59] LABS: PLATELET ESTIMATE NORMAL
[2021-04-19 16:00] VITALS: BP 135/83
[2021-04-19 20:00] VITALS: BP 146/76
[2021-04-19] MEDS: GUAIFENESIN-DM 200MG-20MG/10ML UDC PO PRN (21:54)
[2021-04-20] VITALS: BP 123/82
[2021-04-20 04:00] VITALS: BP 128/65
[2021-04-20] MEDS: ENOXAPARIN 150MG/ML SYR SUBCUT SCH ×2 (06:09→18:23)
[2021-04-20] MEDS: METOPROLOL TARTRATE 50MG TABLET PO SCH ×3 (06:09→21:08)
[2021-04-20 08:00] VITALS: BP 112/70
[2021-04-20] MEDS: ASPIRIN 81MG EC TABLET PO SCH (09:41)
[2021-04-20] MEDS: DEXAMETHASONE 10 MG/ML VIAL IV SCH (09:41)
[2021-04-20] MEDS: AMLODIPINE 10MG TABLET PO SCH (09:47)
[2021-04-20] MEDS: SODIUM CHLORIDE 0.9% 1,000 ML IV SCH ×2 (09:48→18:23)
[2021-04-20 10:43] LABS: BASOPHILS % 0.1 % (0.0-2.0); EOSINOPHILS % 0.1 % (0.0-5.0); HEMATOCRIT. 38.1 % (42.0-52.0); HEMOGLOBIN. 12.3 g/dL (14.0-18.0); LYMPHOCYTES % 9.6 % (20.0-50.0); MEAN CORPUSCULAR HEMOGLOBIN 27.4 pg (28.0-32.0); MEAN CORPUSCULAR VOLUME 85.1 fL (80.0-94.0); MEAN PLATELET VOLUME 9.1 fl (7.4-10.4); MONOCYTES % 5.1 % (2.0-8.0); NEUTROPHILS % 85.1 % (40.0-76.0); PLATELET 186 x1000/uL (130-400); RED BLOOD CELL COUNT 4.47 mill/uL (4.7-6.1); RED CELL DISTRIBUTION WIDTH 13.8 % (11.6-14.6)
[2021-04-20 11:11] LABS: CHLORIDE 100 mEq/L (98-107)
[2021-04-20 12:00] VITALS: BP 155/82
[2021-04-20 16:00] VITALS: BP 136/81
[2021-04-20 20:00] VITALS: BP 138/78
[2021-04-21] VITALS: BP 144/60
[2021-04-21 04:00] VITALS: BP 143/75
[2021-04-21] MEDS: SODIUM CHLORIDE 0.9% 1,000 ML IV SCH ×3 (04:51→20:54)
[2021-04-21] MEDS: METOPROLOL TARTRATE 50MG TABLET PO SCH ×3 (05:01→21:02)
[2021-04-21] MEDS: ENOXAPARIN 150MG/ML SYR SUBCUT SCH ×2 (05:01→17:24)
[2021-04-21 08:00] VITALS: BP 144/93
[2021-04-21] MEDS: ASPIRIN 81MG EC TABLET PO SCH (08:34)
[2021-04-21] MEDS: AMLODIPINE 10MG TABLET PO SCH (08:34)
[2021-04-21] MEDS: DEXAMETHASONE 10 MG/ML VIAL IV SCH (08:34)
[2021-04-21 12:00] VITALS: BP 138/73
[2021-04-21 16:00] VITALS: BP 142/93
[2021-04-21 20:00] VITALS: BP 135/84
[2021-04-22] VITALS (11 sets, daily range): BP systolic 131–159; BP diastolic 68–100
[2021-04-22] MEDS: METOPROLOL TARTRATE 50MG TABLET PO SCH ×3 (04:48→21:10)
[2021-04-22] MEDS: ENOXAPARIN 150MG/ML SYR SUBCUT SCH ×2 (04:49→17:36)
[2021-04-22] MEDS: SODIUM CHLORIDE 0.9% 1,000 ML IV SCH (05:15)
[2021-04-22] MEDS: DEXAMETHASONE 10 MG/ML VIAL IV SCH (09:33)
[2021-04-22] MEDS: ASPIRIN 81MG EC TABLET PO SCH (09:33)
[2021-04-22] MEDS: AMLODIPINE 10MG TABLET PO SCH (09:34)
[2021-04-22] MEDS ORDERED: IPRATROPIUM/ALBUTEROL 0.5-3(2.5)MG/3ML NEB HHN PRN (21:45)
[2021-04-23] VITALS (10 sets, daily range): BP systolic 123–158; BP diastolic 52–99
[2021-04-23] MEDS: IPRATROPIUM/ALBUTEROL 0.5-3(2.5)MG/3ML NEB HHN SCH ×4 (00:41→21:13)
[2021-04-23] MEDS: METOPROLOL TARTRATE 50MG TABLET PO SCH ×3 (05:41→21:18)
[2021-04-23] MEDS: ENOXAPARIN 150MG/ML SYR SUBCUT SCH ×2 (05:42→18:23)
[2021-04-23] MEDS: DEXAMETHASONE 10 MG/ML VIAL IV SCH (08:42)
[2021-04-23] MEDS: ASPIRIN 81MG EC TABLET PO SCH (08:44)
[2021-04-23] MEDS: AMLODIPINE 10MG TABLET PO SCH (08:44)
[2021-04-23] MEDS ORDERED: LIDOCAINE HCL/PF 1% 2ML VIAL ONE (12:27)
[2021-04-23 14:32] LABS: BG BASE EXCESS 3.7 mmol/L (-2.0-2.0); BG CARBOXYHEMOGLOBIN 0.5 % (0.5-1.5); BG FRACTION INSPIRED OXYGEN 21; BG HCO3 ACT 28.2 mmol/L (22.0-26.0); BG METHEMOGLOBIN 0.2 % (0.0-1.5); BG OXYGEN SATURATION 89.9 % (92.0-98.5); BG OXYHEMOGLOBIN 89.3 % (94.0-97.0); BG PCO2 42.4 mmHg (35.0-45.0); BG PH 7.441 (7.350-7.450); BG PO2 56.4 mmHg (75.0-100.0); BG SAMPLE SITE RIGHT RADIAL; BG TOTAL HEMOGLOBIN 13.8 g/dL (12.0-18.0); BG VENT MODE ROOM AIR
[2021-04-23] MEDS: GUAIFENESIN-DM 200MG-20MG/10ML UDC PO PRN (19:51)
[2021-04-24] VITALS (11 sets, daily range): BP systolic 131–165; BP diastolic 55–107
[2021-04-24] MEDS: GUAIFENESIN-DM 200MG-20MG/10ML UDC PO PRN (00:04)
[2021-04-24] MEDS: ACETAMINOPHEN 325MG TABLET PO PRN ×2 (02:29→12:11)
[2021-04-24] MEDS: ENOXAPARIN 150MG/ML SYR SUBCUT SCH ×2 (05:30→18:32)
[2021-04-24] MEDS: METOPROLOL TARTRATE 50MG TABLET PO SCH ×2 (05:30→20:27)
[2021-04-24] MEDS: IPRATROPIUM/ALBUTEROL 0.5-3(2.5)MG/3ML NEB HHN SCH ×2 (07:41→11:51)
[2021-04-24] MEDS: ASPIRIN 81MG EC TABLET PO SCH (10:39)
[2021-04-24] MEDS: DEXAMETHASONE 10 MG/ML VIAL IV SCH (10:40)
[2021-04-24] MEDS: AMLODIPINE 10MG TABLET PO SCH (10:41)
[2021-04-24 16:44] LABS: CHLORIDE 105 mEq/L (98-107)
[2021-04-24 16:46] LABS: BASOPHILS % 0.3 % (0.0-2.0); EOSINOPHILS % 0.2 % (0.0-5.0); HEMATOCRIT. 35.7 % (42.0-52.0); HEMOGLOBIN. 12.1 g/dL (14.0-18.0); LYMPHOCYTES % 13.4 % (20.0-50.0); MEAN CORPUSCULAR HEMOGLOBIN 28.4 pg (28.0-32.0); MEAN CORPUSCULAR VOLUME 83.6 fL (80.0-94.0); MEAN PLATELET VOLUME 9.7 fl (7.4-10.4); MONOCYTES % 4.6 % (2.0-8.0); NEUTROPHILS % 81.5 % (40.0-76.0); PLATELET 251 x1000/uL (130-400); RED BLOOD CELL COUNT 4.27 mill/uL (4.7-6.1); RED CELL DISTRIBUTION WIDTH 13.8 % (11.6-14.6)
[2021-04-25] VITALS (7 sets, daily range): BP systolic 92–166; BP diastolic 58–80
[2021-04-25] MEDS: ENOXAPARIN 150MG/ML SYR SUBCUT SCH (05:52)
[2021-04-25] MEDS: IPRATROPIUM/ALBUTEROL 0.5-3(2.5)MG/3ML NEB HHN SCH (09:08)
[2021-04-25] MEDS ORDERED: DEXA2TAB MT (09:31)
[2021-04-25] MEDS ORDERED: APIX5TAB MT (09:31)
[2021-04-25] MEDS ORDERED: ASPI-1406 PO (09:31)
[2021-04-25] MEDS ORDERED: METO-539 PO (09:31)
[2021-04-25] MEDS: ASPIRIN 81MG EC TABLET PO SCH (10:05)
[2021-04-25] MEDS: AMLODIPINE 10MG TABLET PO SCH (10:05)
[2021-04-25] MEDS: METOPROLOL TARTRATE 50MG TABLET PO SCH (10:06)
[2021-04-25] MEDS: DEXAMETHASONE 10 MG/ML VIAL IV SCH (10:07)
[2021-04-25] MEDS: ACETAMINOPHEN 325MG TABLET PO PRN (10:55)
== END 2021-04-25 11:18 | disposition home or self-care (01) | DRG 720 ==
LOC: ER 08:15 → 7WST 10:25 → EDBEDREQTM 10:27 → EDBEDREQ 10:27 → EDBEDREQSVC 12:07 → ENRESERV 12:14 → 5EST 04-22 08:50
PROVIDERS: ADMIT Internal Medicine; ATTEND Internal Medicine
PROC: 05H333Z Insertion of Infusion Device into Right Innominate Vein, Percutaneous Approach (ICD-10-PCS; 2021-04-16)
PROC: B54MZZA Ultrasonography of Right Upper Extremity Veins, Guidance (ICD-10-PCS; 2021-04-16)
PROC: 5A09557 Assistance with Respiratory Ventilation, Greater than 96 Consecutive Hours, Continuous Positive Airway Pressure (ICD-10-PCS; principal; 2021-04-17)
DX: A41.89 Other specified sepsis (principal); I26.99 Other pulmonary embolism without acute cor pulmonale; J96.01 Acute respiratory failure with hypoxia; J12.82 Pneumonia due to coronavirus disease 2019; U07.1 COVID-19; Z68.42 Body mass index [BMI] 45.0-49.9, adult; I10 Essential (primary) hypertension; J45.909 Unspecified asthma, uncomplicated; N17.9 Acute kidney failure, unspecified; E66.01 Morbid (severe) obesity due to excess calories; F12.90 Cannabis use, unspecified, uncomplicated; E78.5 Hyperlipidemia, unspecified; Z79.899 Other long term (current) drug therapy; I82.412 Acute embolism and thrombosis of left femoral vein; I82.432 Acute embolism and thrombosis of left popliteal vein; Z28.3 Underimmunization status; R00.0 Tachycardia, unspecified; R80.9 Proteinuria, unspecified; R31.9 Hematuria, unspecified; R74.01 Elevation of levels of liver transaminase levels
CPT/HCPCS: 36415; 36600; 71045; 71275; 76937; 80048; 80053; 80061; 80076; 80305; 81003; 82270; 82375; 82728; 82805; 83036; 83615; 83880; 84145; 84443; 84484; 85025; 85379; 86140; 87426; 93005; 93306; 93970; 94640; 94660; 99291; C1725; C1893; J0456; J0696; J1100; J1650; J3490; J7060; Q9967; U0003; U0005

== ENCOUNTER 2021-12-14 22:23 | Emergency (ER) | payer OTHER ==
[~2021-12-14] VITALS: Ht 190.5 cm; Wt 184.7 kg
[~2021-12-14 22:23] MED LIST changes: +AMLO10TA80 PO; +APIX5TAB MT; +ASPI-1406 PO; +DEXA2TAB MT; -IBUP-2029 MT; +METO-539 PO
[2021-12-15] MEDS ORDERED: IBUPROFEN 600MG TABLET PO ONE (00:45)
[2021-12-15] MEDS ORDERED: IBUPROFEN 600MG TABLET PO SCH (02:00)
[2021-12-15 03:51] VITALS: BP 145/76
== END 2021-12-15 03:52 | disposition home or self-care (01) ==
LOC: ER 22:23
DX: M25.512 Pain in left shoulder (principal); M25.552 Pain in left hip; M25.572 Pain in left ankle and joints of left foot; F12.10 Cannabis abuse, uncomplicated; I10 Essential (primary) hypertension; J45.909 Unspecified asthma, uncomplicated; Z98.890 Other specified postprocedural states; W01.0XXA Fall on same level from slipping, tripping and stumbling without subsequent striking against object, initial encounter; Y93.89 Activity, other specified; Y92.89 Other specified places as the place of occurrence of the external cause; Y99.8 Other external cause status
CPT/HCPCS: 73610; 99283

== ENCOUNTER 2022-04-11 02:19 | Emergency (ER) | payer OTHER ==
[~2022-04-11] VITALS: Ht 193 cm; Wt 183.4 kg
[2022-04-11] MEDS ORDERED: METHOCARBAMOL 500MG TABLET PO ONE (03:00)
[2022-04-11] MEDS ORDERED: HYDROCODONE/ACETAMINOPHEN 5/325MG TABLET PO ONE (03:00)
[2022-04-11] MEDS ORDERED: LIDO1ADH23 TP (05:12)
[2022-04-11] MEDS ORDERED: METH-773 MT (05:12)
[2022-04-11] MEDS ORDERED: HYDR-4001 MT (05:12)
[2022-04-11 05:21] VITALS: BP 140/89
== END 2022-04-11 05:24 | disposition home or self-care (01) ==
LOC: ER 02:19
DX: M54.50 Low back pain, unspecified (principal); I10 Essential (primary) hypertension; Z98.890 Other specified postprocedural states
CPT/HCPCS: 99283

== ENCOUNTER 2023-10-14 17:50 | Emergency (ER) | payer SELFPAY ==
[~2023-10-14] VITALS: Ht 193 cm; Wt 188.0 kg
[~2023-10-14 17:50] MED LIST changes: +HYDR-4001 MT; +LIDO1ADH23 TP; +METH-773 MT
[2023-10-14 18:08] VITALS: O2SAT 97
[2023-10-14] MEDS: ALBUTEROL (0.083%) 2.5MG/3ML NEB HHN ONE (21:15)
[2023-10-14] MEDS: CYCLOBENZAPRINE 10MG TABLET PO ONE (21:24)
[2023-10-14] MEDS: KETOROLAC 30MG/ML VIAL IM ONE (21:24)
[2023-10-14 22:40] VITALS: PULSE 82; RESP 16
[2023-10-14] MEDS ORDERED: CYCL10TA21 MT (22:44)
[2023-10-14] MEDS ORDERED: NAPR-1176 MT (22:44)
[2023-10-14] MEDS ORDERED: GUAI600T26 MT (22:44)
[2023-10-14 23:01] VITALS: BP 159/91; PULSE 90; RESP 20; TEMP 98.1
== END 2023-10-14 23:05 | disposition home or self-care (01) ==
LOC: ER 17:50
DX: M54.50 Low back pain, unspecified (principal); B34.9 Viral infection, unspecified; F12.90 Cannabis use, unspecified, uncomplicated; J45.909 Unspecified asthma, uncomplicated; I10 Essential (primary) hypertension
CPT/HCPCS: 71045; 94640; 96372; 99283; J1885; Z7610 ×2

== ENCOUNTER 2023-10-30 16:09 | Emergency (ER) | payer SELFPAY ==
[~2023-10-30] VITALS: Ht 182.9 cm; Wt 136.0 kg
[~2023-10-30 16:09] MED LIST changes: +CYCL10TA21 MT; +GUAI600T26 MT; +NAPR-1176 MT
[2023-10-30 16:13] VITALS: BP 155/84; PULSE 99; RESP 20; TEMP 98.1; O2SAT 96
[2023-10-30] MEDS: DEXAMETHASONE 10 MG/ML VIAL PO ONE (17:11)
[2023-10-30] MEDS ORDERED: AMOX1TAB16 MT (17:31)
== END 2023-10-30 19:28 | disposition home or self-care (01) ==
LOC: ER 16:09
DX: J02.9 Acute pharyngitis, unspecified (principal); H66.92 Otitis media, unspecified, left ear; J45.909 Unspecified asthma, uncomplicated; I10 Essential (primary) hypertension; F12.10 Cannabis abuse, uncomplicated; Z79.899 Other long term (current) drug therapy
CPT/HCPCS: 99284; 71045; 87430; 87070; J1100

== ENCOUNTER 2024-10-12 11:57 | Emergency (ER) | payer MEDICAID ==
[~2024-10-12] VITALS: Ht 193 cm; Wt 185.0 kg
[~2024-10-12 11:57] MED LIST changes: +AMOX1TAB16 MT
[2024-10-12 11:58] VITALS: O2SAT 98
[2024-10-12 12:07] VITALS: TEMP 36.8; O2SAT 97
[2024-10-12 14:00] VITALS: BP 147/87; PULSE 72; RESP 16; TEMP 98.3
[2024-10-12] MEDS: CYCLOBENZAPRINE 10MG TABLET PO ONE (14:00)
[2024-10-12] MEDS: KETOROLAC 30MG/ML VIAL IM ONE (14:00)
[2024-10-12] MEDS: ACETAMINOPHEN 500MG TABLET PO ONE (14:00)
[2024-10-12] MEDS ORDERED: LIDO700A15 TP (14:56)
[2024-10-12] MEDS ORDERED: NAPR-681 MT (14:56)
[2024-10-12] MEDS ORDERED: ACET-2708 MT (14:56)
== END 2024-10-12 15:20 | disposition home or self-care (01) ==
LOC: ER 11:57
DX: M54.41 Lumbago with sciatica, right side (principal); F12.90 Cannabis use, unspecified, uncomplicated; I10 Essential (primary) hypertension; Z79.01 Long term (current) use of anticoagulants; Z79.1 Long term (current) use of non-steroidal anti-inflammatories (NSAID); Z79.82 Long term (current) use of aspirin; Z79.899 Other long term (current) drug therapy
CPT/HCPCS: 99283; 96372; J1885